=== PATIENT | male | born 1955 | race Caucasian/White ===

== ENCOUNTER 2019-03-04 20:20 | Emergency (ER) | payer OTHER ==
[2019-03-04 20:28] VITALS: BP 125/68
--- NOTE | 2019-03-04 20:31 | ER Document Report ---
HPI - HPI Time Seen by Provider: 03/04/19 20:23 Context: 63-year-old generally healthy male presents the emergency department for a foreign body lodged in his esophagus. He was eating steak and a big chunk got stuck in his throat and he was choking but still able to maintain his airway and speak in full sentences. Because he wanted to be home where in case "things went the wrong way". Patient is maintaining his oxygen saturation, vital signs are within normal limits and as I was listening to him he had a forceful cough and expelled a large piece of steak and immediately felt better. Past Medical History - Social History Smoking Status: Unknown if Ever Smoked Family History: None Vertical Provider Document - CONSTITUTIONAL Notes: PHYSICAL EXAMINATION: Reviewed vital signs and charting by RN GENERAL: Alert, interacts well. No acute distress. HEAD: Normocephalic, atraumatic. EYES: Pupils equal and round. Extraocular movements intact. ENT: Oral mucosa moist, tongue midline. NECK: Full range of motion. Trachea midline. LUNGS: Clear to auscultation bilaterally, no wheezes, rales, or rhonchi. No respiratory distress. HEART: Regular rate and rhythm. No murmur EXTREMITIES: Moves all 4 extremities spontaneously. No edema, No cyanosis. PSYCH: Normal affect, normal mood. SKIN: Warm, dry, normal turgor. No rashes or lesions noted. Course - Re-evaluation Re-evalutation: 03/04/19 20:30 Well-appearing in no acute distress, patient successfully coughed out a large piece of steak and felt immediate relief. We are going to observe the patient for short period of time to ensure that is not have any residual symptoms or any respiratory distress. I have given patient strict return precautions and warnings for aspiration pneumonitis or any other concerning respiratory condition. At this time he is stable for discharge pending a short period of observation. Discharge - Discharge Clinical Impression: Foreign body in esophagus Qualifiers: Encounter type: initial encounter Qualified Code(s): T18.108A - Unspecified foreign body in esophagus causing other injury, initial encounter Condition: Good Disposition: HOME, SELF-CARE Additional Instructions: You were seen in the emergency department for a piece of steak lodged in your esophagus. You expelled it after a forceful cough which is great. We observe you for a short period to ensure that you are not having any secondary signs of aspiration. Please return to the emergency department for reevaluation if you start developing shortness of breath, wheezing, fever, you have the foreign body sensation again, or you have any other concerning symptoms.
== END 2019-03-04 21:07 | disposition home or self-care (01) ==
LOC: ER 20:20
DX: T18.108A Unspecified foreign body in esophagus causing other injury, initial encounter (principal)
CPT/HCPCS: 99283